=== PATIENT | female | born 1960 | race Caucasian/White ===

== ENCOUNTER 2017-11-14 01:32 | Emergency (ER) | payer SELFPAY ==
[~2017-11-14] VITALS: Ht 152.4 cm; Wt 61.0 kg
[2017-11-14] MEDS ORDERED: MORPHINE SULFATE 10 MG/ML CPJ IM ONE (02:30)
[2017-11-14] MEDS ORDERED: CYCLOBENZAPRINE 10MG TABLET PO ONE (02:30)
[2017-11-14] MEDS ORDERED: KETOROLAC 60MG/2ML VIAL IM ONE (02:30)
[2017-11-14] MEDS ORDERED: PREDNISONE 20MG TABLET PO ONE (02:30)
[2017-11-14 03:00] VITALS: BP 142/68
[2017-11-14] MEDS ORDERED: ONDANSETRON 4MG ODT PO ONE (03:30)
== END 2017-11-14 03:45 | disposition home or self-care (01) ==
LOC: ER 01:32
DX: S39.012A Strain of muscle, fascia and tendon of lower back, initial encounter (principal); J45.909 Unspecified asthma, uncomplicated; Z88.6 Allergy status to analgesic agent; X50.0XXA Overexertion from strenuous movement or load, initial encounter; Y93.89 Activity, other specified; Y92.018 Other place in single-family (private) house as the place of occurrence of the external cause
CPT/HCPCS: 96372; 99284; J2270; J7512; Q0162

== ENCOUNTER 2018-04-19 06:07 | Emergency (ER) | payer MEDICAID ==
[~2018-04-19] VITALS: Ht 152.4 cm; Wt 59.0 kg
[2018-04-19] MEDS ORDERED: ONDANSETRON HCL 4MG/2ML INJ IV STA (06:59)
[2018-04-19] MEDS ORDERED: MORPHINE SULFATE 4 MG/ML CPJ (NOT FOR IM USE) IV STA (06:59)
[2018-04-19] MEDS ORDERED: SODIUM CHLORIDE 0.9% 1,000 ML IV ONE (06:59)
[2018-04-19] MEDS ORDERED: FAMOTIDINE 20MG/2ML VIAL IV ONE (07:15)
[2018-04-19 08:35] LABS: BASOPHILS % 0.4 % (0.0-2.0); HEMATOCRIT. 39.4 % (36.0-48.0); HEMOGLOBIN. 13.1 g/dL (12.0-16.0); LYMPHOCYTES % 8.8 % (20.0-50.0); MEAN CORPUSCULAR HEMOGLOBIN 29.3 pg (28.0-32.0); MONOCYTES % 2.6 % (2.0-8.0); NEUTROPHILS % 88.2 % (40.0-76.0); PLATELET 280 x1000/uL (130-400); RED BLOOD CELL COUNT 4.48 mill/uL (4.2-5.4)
[2018-04-19 08:43] LABS: CHLORIDE 110 mEq/L (98-107); INR 1.1; PROTHROMBIN TIME 10.7 sec (9.1-11.1)
[2018-04-19 09:31] LABS: CLARITY URINE CLEAR (CLEAR); COLOR URINE YELLOW (YELLOW); KETONES URINE 1+ (NEGATIVE); LEUKOCYTE ESTERASE URINE NEGATIVE (NEGATIVE); NITRITE URINE NEGATIVE (NEGATIVE); OCCULT BLOOD URINE 1+ (NEGATIVE); PROTEIN URINE NEGATIVE (NEGATIVE); SPECIFIC GRAVITY URINE 1.025 (1.005-1.030); UROBILINOGEN URINE 0.2 E.U./dL (0.2-1.0)
[2018-04-19 11:30] VITALS: BP 139/79
== END 2018-04-19 12:16 | disposition home or self-care (01) ==
LOC: ER 06:07
DX: K80.20 Calculus of gallbladder without cholecystitis without obstruction (principal); N39.0 Urinary tract infection, site not specified; Z88.6 Allergy status to analgesic agent
CPT/HCPCS: 36415; 76705; 80053; 81003; 83690; 85025; 85610; 96361; 96374; 96375; 99284; J2270; J2405; J3490; J7030

== ENCOUNTER 2018-05-27 20:54 | Emergency (ER) | payer MEDICAID ==
[~2018-05-27] VITALS: Ht 152.4 cm; Wt 59.0 kg
[2018-05-27 22:45] VITALS: BP 138/67
== END 2018-05-27 23:38 | disposition left against medical advice (07) ==
LOC: ER 20:54
DX: R10.13 Epigastric pain (principal); Z53.21 Procedure and treatment not carried out due to patient leaving prior to being seen by health care provider

== ENCOUNTER 2018-06-19 04:16 | Inpatient (IN) | payer MEDICAID ==
[~2018-06-19] VITALS: Ht 152.4 cm; Wt 56.2 kg
[2018-06-19] MEDS ORDERED: MORPHINE SULFATE 4 MG/ML CPJ (NOT FOR IM USE) IV STA (08:37)
[2018-06-19] MEDS ORDERED: ONDANSETRON HCL 4MG/2ML INJ IV STA (08:37)
[2018-06-19 08:57] LABS: BASOPHILS % 0.4 % (0.0-2.0); HEMATOCRIT. 39.6 % (36.0-48.0); HEMOGLOBIN. 13.4 g/dL (12.0-16.0); LYMPHOCYTES % 7.8 % (20.0-50.0); MEAN CORPUSCULAR HEMOGLOBIN 29.7 pg (28.0-32.0); MEAN CORPUSCULAR VOLUME 87.9 fL (81.0-99.0); MEAN PLATELET VOLUME 8.8 fl (7.4-10.4); MONOCYTES % 2.2 % (2.0-8.0); NEUTROPHILS % 89.6 % (40.0-76.0); PLATELET 255 x1000/uL (130-400); RED CELL DISTRIBUTION WIDTH 13.3 % (11.6-14.6)
[2018-06-19 09:04] LABS: CHLORIDE 110 mEq/L (98-107)
[2018-06-19 09:05] LABS: PROTHROMBIN TIME 10.4 sec (9.1-11.1)
[2018-06-19] MEDS ORDERED: POTASSIUM CHLORIDE 20MEQ TABLET SR PO NR (11:30)
[2018-06-19] MEDS ORDERED: HYDRALAZINE 20MG/ML VIAL IV PRN (11:30)
[2018-06-19] MEDS ORDERED: ONDANSETRON HCL 4MG/2ML INJ IV PRN (11:30)
[2018-06-19] MEDS: DEXT 5%/0.45% NACL 1000ML 1,000 ML IV SCH (11:30)
[2018-06-19] MEDS ORDERED: HYDRALAZINE 10 MG in SODIUM CHLORIDE 0.9% 49.5 ML IV PRN (16:30)
[2018-06-19 16:42] VITALS: BP 130/52
[2018-06-19 16:57] VITALS: BP 118/66
[2018-06-19] MEDS: PIPERACILLIN/TAZ 3.375G PREMIX 50 ML IV SCH ×2 (18:24→23:53)
[2018-06-19 20:36] VITALS: BP 118/46
[2018-06-20] VITALS: BP 123/62
[2018-06-20 04:00] VITALS: BP 118/61
[2018-06-20] MEDS: DEXT 5%/0.45% NACL 1000ML 1,000 ML IV SCH (05:21)
[2018-06-20] MEDS: PIPERACILLIN/TAZ 3.375G PREMIX 50 ML IV SCH (05:21)
[2018-06-20 06:44] LABS: BASOPHILS % 0.7 % (0.0-2.0); EOSINOPHILS % 1.8 % (0.0-5.0); HEMATOCRIT. 36.3 % (36.0-48.0); HEMOGLOBIN. 12.4 g/dL (12.0-16.0); LYMPHOCYTES % 44.4 % (20.0-50.0); MEAN CORPUSCULAR HEMOGLOBIN 30.5 pg (28.0-32.0); MEAN CORPUSCULAR VOLUME 89.3 fL (81.0-99.0); MEAN PLATELET VOLUME 9.1 fl (7.4-10.4); MONOCYTES % 9.6 % (2.0-8.0); NEUTROPHILS % 43.5 % (40.0-76.0); PLATELET 232 x1000/uL (130-400); RED BLOOD CELL COUNT 4.06 mill/uL (4.2-5.4); RED CELL DISTRIBUTION WIDTH 13.4 % (11.6-14.6)
[2018-06-20 06:51] LABS: CHLORIDE 110 mEq/L (98-107)
[2018-06-20] MEDS ORDERED: SKIN ADHESIVE 0.7 GM EA TOP ONE (07:15)
[2018-06-20] MEDS ORDERED: BUPIVACAINE HCL/PF 0.5% (5MG/ML) 10ML ONE ×2 (07:15→07:54)
[2018-06-20] MEDS ORDERED: PROPOFOL 200MG/20ML VIAL IV ONE (07:41)
[2018-06-20] MEDS ORDERED: LIDOCAINE HCL/PF 1% 10 MG/ML 5ML VIAL ONE (07:42)
[2018-06-20] MEDS ORDERED: FENTANYL CITRATE/PF 50MCG/ML 2ML VIAL ONE ×2 (07:42→08:24)
[2018-06-20] MEDS ORDERED: CEFAZOLIN SODIUM 1000MG/VIAL ONE (07:43)
[2018-06-20] MEDS ORDERED: MIDAZOLAM HCL 2 MG/2 ML VIAL ONE ×2 (07:43→08:24)
[2018-06-20] MEDS ORDERED: ROCURONIUM BROMIDE 10MG/ML VIAL 5ML IV ONE ×2 (07:43→08:01)
[2018-06-20] MEDS ORDERED: GLYCOPYRROLATE 0.2 MG/ML 2ML VIAL ONE (08:14)
[2018-06-20] MEDS ORDERED: HYDROCODONE/ACETAMINOPHEN 5/325MG TABLET PO PRN ×2 (08:30)
[2018-06-20] MEDS ORDERED: ONDANSETRON HCL 4MG/2ML INJ IV PRN ×2 (08:30→08:45)
[2018-06-20] MEDS ORDERED: MORPHINE SULFATE 4 MG/ML CPJ (NOT FOR IM USE) IV PRN ×2 (08:30)
[2018-06-20] MEDS ORDERED: HYDROMORPHONE HCL/PF 2MG/ML CPJ IV PRN (08:45)
[2018-06-20] MEDS: HYDROMORPHONE HCL/PF 2MG/ML CPJ IV PRN ×2 (09:12→09:19)
[2018-06-20] MEDS: DEXT 5%/0.45% NACL KCL 20MEQ/L 1,000 ML IV SCH ×2 (10:00→22:12)
[2018-06-20 12:00] VITALS: BP 124/59
[2018-06-20] MEDS ORDERED: SODIUM CHLORIDE 0.9% INJ 3ML FLUSH IVF SCH (14:00)
[2018-06-20 16:00] VITALS: BP 103/35
[2018-06-20 20:00] VITALS: BP 111/51
[2018-06-20] MEDS: MORPHINE SULFATE 4 MG/ML CPJ (NOT FOR IM USE) IV PRN (22:14)
[2018-06-21] VITALS: BP 111/47
[2018-06-21 04:00] VITALS: BP 132/47
[2018-06-21 07:01] LABS: BASOPHILS % 0.5 % (0.0-2.0); EOSINOPHILS % 0.2 % (0.0-5.0); HEMATOCRIT. 33.9 % (36.0-48.0); HEMOGLOBIN. 11.6 g/dL (12.0-16.0); LYMPHOCYTES % 18.4 % (20.0-50.0); MEAN CORPUSCULAR HEMOGLOBIN 30.1 pg (28.0-32.0); MEAN CORPUSCULAR VOLUME 87.9 fL (81.0-99.0); MEAN PLATELET VOLUME 8.7 fl (7.4-10.4); NEUTROPHILS % 71.9 % (40.0-76.0); PLATELET 193 x1000/uL (130-400); RED BLOOD CELL COUNT 3.86 mill/uL (4.2-5.4); RED CELL DISTRIBUTION WIDTH 13.1 % (11.6-14.6)
[2018-06-21 07:59] LABS: CHLORIDE 111 mEq/L (98-107)
[2018-06-21 08:00] VITALS: BP 138/55
[2018-06-21] MEDS: MORPHINE SULFATE 4 MG/ML CPJ (NOT FOR IM USE) IV PRN (10:25)
[2018-06-21 12:00] VITALS: BP 145/60
[2018-06-21 17:12] VITALS: BP 155/56
== END 2018-06-21 18:00 | disposition home or self-care (01) | DRG 263 ==
LOC: ER 04:16 → 6EST 10:20 → ENRESERV 11:49
PROVIDERS: ADMIT Internal Medicine; ATTEND Internal Medicine
PROC: 0FT44ZZ Resection of Gallbladder, Percutaneous Endoscopic Approach (ICD-10-PCS; principal; 2018-06-20)
DX: K80.01 Calculus of gallbladder with acute cholecystitis with obstruction (principal); E87.8 Other disorders of electrolyte and fluid balance, not elsewhere classified; E87.6 Hypokalemia; Z88.6 Allergy status to analgesic agent
CPT/HCPCS: 36415; 76705; 78227; 80048; 83036; 88304; 93970; 96374; 96375; 99285; A9537; J0690; J1170; J2250; J2270; J2405; J2543; J2704; J3010; J3490; J7040

== ENCOUNTER 2018-09-19 12:15 | Emergency (ER) | payer MEDICAID ==
[~2018-09-19] VITALS: Ht 160 cm; Wt 57.0 kg
[2018-09-19] MEDS ORDERED: SODIUM CHLORIDE 0.9% 1,000 ML IV ONE (15:17)
[2018-09-19] MEDS ORDERED: ONDANSETRON HCL 4MG/2ML INJ IV STA (15:17)
[2018-09-19] MEDS ORDERED: MAGNESIUM/ALUMINUM HYDROXIDE/SIMETHICONE 30ML UDC PO STA (15:17)
[2018-09-19 15:48] LABS: CHLORIDE 112 mEq/L (98-107)
[2018-09-19 15:49] LABS: PROTHROMBIN TIME 10.7 sec (9.6-11.0)
[2018-09-19 15:50] LABS: BASOPHILS % 0.4 % (0.0-2.0); EOSINOPHILS % 1.4 % (0.0-5.0); HEMATOCRIT. 36.6 % (36.0-48.0); HEMOGLOBIN. 12.6 g/dL (12.0-16.0); LYMPHOCYTES % 33.2 % (20.0-50.0); MEAN CORPUSCULAR HEMOGLOBIN 30.3 pg (28.0-32.0); MEAN CORPUSCULAR VOLUME 88.3 fL (81.0-99.0); MEAN PLATELET VOLUME 8.5 fl (7.4-10.4); MONOCYTES % 10.8 % (2.0-8.0); NEUTROPHILS % 54.2 % (40.0-76.0); PLATELET 235 x1000/uL (130-400); RED BLOOD CELL COUNT 4.14 mill/uL (4.2-5.4); RED CELL DISTRIBUTION WIDTH 13.8 % (11.6-14.6)
[2018-09-19] MEDS ORDERED: IOHEXOL-300 100 ML BOTTLE ONE (17:03)
[2018-09-19 18:40] VITALS: BP 118/64
== END 2018-09-19 19:05 | disposition home or self-care (01) ==
LOC: ER 12:15
DX: R10.11 Right upper quadrant pain (principal); R11.2 Nausea with vomiting, unspecified; Z90.49 Acquired absence of other specified parts of digestive tract; Z88.6 Allergy status to analgesic agent
CPT/HCPCS: 36415; 74177; 80053; 83690; 85025; 85610; 96360; 99284; J7030; Q9967; J2405

== ENCOUNTER 2020-02-19 15:15 | Emergency (ER) | payer MEDICAID ==
[~2020-02-19] VITALS: Ht 157.5 cm; Wt 55.0 kg
[2020-02-19 16:07] LABS: EOSINOPHILS % 1.2 % (0.0-5.0); HEMATOCRIT. 36.3 % (36.0-48.0); HEMOGLOBIN. 12.5 g/dL (12.0-16.0); LYMPHOCYTES % 29.5 % (20.0-50.0); MEAN CORPUSCULAR HEMOGLOBIN 30.5 pg (28.0-32.0); MEAN CORPUSCULAR VOLUME 88.3 fL (81.0-99.0); MEAN PLATELET VOLUME 8.5 fl (7.4-10.4); NEUTROPHILS % 60.3 % (40.0-76.0); PLATELET 241 x1000/uL (130-400); RED BLOOD CELL COUNT 4.12 mill/uL (4.2-5.4); RED CELL DISTRIBUTION WIDTH 13.3 % (11.6-14.6)
[2020-02-19 16:15] LABS: CHLORIDE 114 mEq/L (98-107)
[2020-02-19 17:00] VITALS: BP 150/78
== END 2020-02-19 17:00 | disposition home or self-care (01) ==
LOC: ER 15:15
DX: R07.89 Other chest pain (principal); Z88.6 Allergy status to analgesic agent; Z88.8 Allergy status to other drugs, medicaments and biological substances
CPT/HCPCS: 36415; 71045; 80053; 84484; 85025; 87635; 93005; 99285; C9803